=== PATIENT | male | born 1995 | race Hispanic/Latino ===

== ENCOUNTER → 2024-09-24 | Outpatient (CLI) | payer OTHER ==
[2024-09-24 11:40] LABS: BASO # 0.1 10^3/uL (0.0-0.2); BASO % 1.1 % (0.0-1.0); EOS % 0.6 % (0.0-3.0); HEMATOCRIT 45.9 % (42.0-52.0); HEMOGLOBIN 15.6 g/dl (13.5-17.5); LYMPH # 1.9 10^3/uL (1.5-5.0); LYMPH % 41.5 % (24.0-44.0); MEAN CORPUSCULAR VOLUME 85.3 fl (80.0-96.0); MONO # 0.5 10^3/uL (0.0-0.8); MONO % 10.5 % (2.0-8.0); NEUTROPHILS # 2.2 10^3/uL (1.5-8.5); NEUTROPHILS % 46.1 % (36.0-66.0); PLATELET COUNT, AUTOMATED 254 10^3/uL (150-450); RED BLOOD COUNT 5.38 10^6/uL (4.30-6.10); WHITE BLOOD COUNT 4.7 10^3/uL (4.0-10.0)
[2024-09-24 12:15] LABS: ALKALINE PHOSPHATASE 97 U/L (40-129); ALT/SGPT 48 U/L (7.0-40); AST/SGOT 164 U/L (<34); BILIRUBIN,TOTAL 0.6 MG/DL (0.3-1.2); BLOOD UREA NITROGEN 15 MG/DL (9-23); CALCIUM LEVEL 9.7 MG/DL (8.5-10.1); CARBON DIOXIDE LEVEL 30 MMOL/L (20-31); CHLORIDE LEVEL 107 MMOL/L (98-107); CREATININE FOR GFR 0.94 MG/DL (0.70-1.30); GLOMERULAR FILTRATION RATE > 60.0 (>60); GLUCOSE, FASTING 85 MG/DL (60-100); IRON (FE) 102 UG/DL (65-175); POTASSIUM SERUM 4.3 MMOL/L (3.5-5.1); SODIUM LEVEL 143 MMOL/L (136-145); THYROID STIMULATING HORMONE 0.669 uIU/ML (0.55-4.78); TOTAL 25(OH) VITAMIN D 29.8 NG/ML (20.0-100.0); TOTAL PROTEIN 7.5 G/DL (5.7-8.2)
[2024-09-24 12:16] LABS: TESTOSTERONE 526 NG/DL (241-827)
[2024-09-24 12:17] LABS: FREE T4 1.21 NG/DL (0.89-1.76)
[2024-09-24 12:56] LABS: MONO SCRN NEGATIVE (NEGATIVE)
== END ==
LOC: M LAB 11:13
PROVIDERS: ATTEND Physician Assistant
DX: R53.83 Other fatigue (principal)

== ENCOUNTER → 2025-02-14 | Outpatient (CLI) | payer OTHER | LOC: M EKG 08:29 | PROVIDERS: ATTEND Physician Assistant | DX: R00.2 Palpitations (principal) ==

== ENCOUNTER → 2025-05-13 | Outpatient (REF) | payer OTHER ==
[2025-05-13 13:59] LABS: SEMEN APPEARANCE OPAQUE (OPAQUE)
[2025-05-13 14:00] LABS: SEMEN VISCOSITY VISCOUS (LIQUID); SEMEN VOLUME 3.3 ML (2.0-5.0); SEMEN WBC <=1 M/ml (<=1 M/ml)
== END ==
LOC: M LAB REF 13:16
PROVIDERS: ATTEND Obstetrics & Gynecology
DX: N46.8 Other male infertility (principal)

== ENCOUNTER → 2025-07-28 | Outpatient (REF) | payer OTHER ==
[2025-07-28 10:11] LABS: SEMEN APPEARANCE OPAQUE (OPAQUE); SEMEN VISCOSITY LIQUID (LIQUID); SEMEN VOLUME 6.5 ml (2.0-5.0); SPERM CONCENTRATION 63.0 M/ml (>=15.0); WBC CONCENTRATION <=1 M/ml (<=1 M/ml)
[2025-07-28 10:12] LABS: TOTAL PROGRESSIVE SPERM 172.5 M/Ejac.
== END ==
LOC: M SMT 09:26
PROVIDERS: ATTEND Physician Assistant
DX: N46.9 Male infertility, unspecified (principal)

== ENCOUNTER → 2025-07-28 | Outpatient (CLI) | payer OTHER ==
[2025-07-28 11:36] LABS: ESTRADIOL 50.8 PG/ML (<39.8); LUTEINIZING HORMONE 3.2 mIU/ML (1.5-9.3)
[2025-07-29 22:27] LABS: SEX HORMONE BINDING GLOBULIN 35.0 nmol/L (10-50)
[2025-08-02 22:07] LABS: TESTOSTERONE FREE (DIRECT) 113.5 pg/mL (35.0-155.0); TESTOSTERONE TOTAL FOR T&D 617.0 ng/dL (250-1100)
== END ==
LOC: M LAB 09:46
PROVIDERS: ATTEND Physician Assistant
DX: N46.9 Male infertility, unspecified (principal)